=== PATIENT | female | born 1975 | race Hispanic/Latino ===

== ENCOUNTER 2017-11-06 08:28 | Outpatient (CLI) | payer MEDICAID | END 2017-11-06 08:29 | disposition home or self-care (01) | LOC: BICMAMMO 08:28 | PROVIDERS: ATTEND Nurse Practitioner Family | DX: R92.2 Inconclusive mammogram (principal) | CPT/HCPCS: G0279 ==

== ENCOUNTER 2018-06-12 09:42 | Outpatient (CLI) | payer MEDICAID | END 2018-06-12 09:43 | disposition home or self-care (01) | LOC: BICMAMMO 09:42 → EDSTATUS 10:00 | PROVIDERS: ATTEND Nurse Practitioner Family | DX: R92.8 Other abnormal and inconclusive findings on diagnostic imaging of breast (principal); N63.22 Unspecified lump in the left breast, upper inner quadrant | CPT/HCPCS: G0279 ==

== ENCOUNTER 2019-01-17 14:45 | Outpatient (CLI) | payer MEDICAID ==
--- NOTE | 2019-01-17 15:22 | MMO ---
Bilateral MAMMO Bilat Diag [facility]. CLINICAL HISTORY: Patient is 43 years old and is seen for diagnostic exam. The patient has no family history of breast cancer. The patient has no personal history of cancer. VIEWS: The views performed were: bilateral craniocaudal with tomosynthesis; bilateral mediolateral oblique with tomosynthesis; and bilateral mediolateral. FILMS COMPARED: The present examination has been compared to prior imaging studies performed at [facility] on 10/25/2017, 11/06/2017 and 06/12/2018. MAMMOGRAM FINDINGS: The breasts are heterogeneously dense, which could obscure a lesion on mammography. Finding 1: There are stable benign appearing calcifications seen in both breasts. Finding 2: There is a stable nodule with associated dystrophic calcifications seen in the posterior of the left breast. There are no suspicious masses, suspicious calcifications, or new areas of architectural distortion. IMPRESSION: THERE IS NO MAMMOGRAPHIC EVIDENCE OF MALIGNANCY. A ROUTINE FOLLOW-UP MAMMOGRAM IN 1 YEAR IS RECOMMENDED. THE RESULTS OF THIS EXAM WERE SENT TO THE PATIENT. ACR BI-RADS Category 2 - Benign finding MAMMOGRAPHY NOTE: 1. A negative mammogram report should not delay a biopsy if a dominant of clinically suspicious mass is present. 2. Approximately 10% to 15% of breast cancers are not detected by mammography. 3. Adenosis and dense breasts may obscure an underlying neoplasm.
== END 2019-01-17 14:46 | disposition home or self-care (01) ==
LOC: BICMAMMO 14:45
PROVIDERS: ATTEND Family Medicine
DX: R92.8 Other abnormal and inconclusive findings on diagnostic imaging of breast (principal)
CPT/HCPCS: 77066; G0279

== ENCOUNTER 2019-11-09 10:37 | Emergency (ER) | payer MEDICAID ==
[2019-11-09 11:07] LABS: Bacteria/HPF 2+ HPF (None Seen); Bilirubin Negative (Negative); Blood, Urine 1+ (Negative); Clarity Turbid (Clear); Glucose, Urine (Dipstick) Normal (Negative); Leukocyte 250 Leu/uL (Negative); Nitrite Negative (Negative); Protein, Urine (Dipstick) 10 mg/dL (Neg-Trace); Urobilinogen Normal mg/dL (Less than 2)
[2019-11-09 11:08] LABS: Pregnancy Test - Urine (BHCG) Negative (Negative); Pregu Control Background? CLEAR/WHITE (CLR/WHITE); Pregu Control Bar Appear? YES (CONTROL BAR); Specific Gravity 1.024 (1.002-1.036)
[2019-11-09] MEDS ORDERED: Ondansetron PF 4 MG/2 ML Vial ONE (11:29)
[2019-11-09] MEDS ORDERED: Ketorolac Tromethamine 30 MG/ML VIAL ONE (11:31)
--- NOTE | 2019-11-09 12:04 | CT ---
CT Stone Protocol: 11/09/2019 11:16 AM HISTORY: Right back pain radiating to the abdomen COMPARISON: 11/11/2015 TECHNIQUE: Multiple contiguous axial images were obtained and a CT of the abdomen and pelvis without IV contrast . Coronal and sagittal reformats were performed. FINDINGS: This examination is limited for the evaluation of solid organs and vascular structures due to the lac k of intravenous contrast. Lower Chest: within normal limits. Abdomen: Liver: within normal limits. Bile Ducts: Normal caliber. Gallbladder: Removed Pancreas: within normal limits. Spleen: within normal limits. Adrenals: within normal limits. Kidneys: Nonobstructing calcifications in the left kidney measuring up to 3 mm in size. Pelvis: Reproductive Organs: No pelvic masses. Multiple phleboliths are seen in the pelvis. These are externa l to the distal ureters. Ureters: within normal limits. Bladder: within normal limits. Bowel: Normal caliber. Postsurgical changes in the stomach. Mesenteric Lymph Nodes: No enlarged mesenteric lymph nodes. Peritoneum: No ascites or free air, no fluid collection. Vessels: Normal caliber aorta Retroperitoneum: within normal limits. Abdominal Wall: within normal limits. Bones: Unremarkable. IMPRESSION: Nonobstructing left renal calcifications
== END 2019-11-09 13:32 | disposition home or self-care (01) ==
LOC: ERS 10:37
DX: N39.0 Urinary tract infection, site not specified (principal); Z87.442 Personal history of urinary calculi
CPT/HCPCS: 74176; 81003; 81015; 81025; 87086; 96361; 96374; 96375; J1885; J2405

== ENCOUNTER 2020-05-21 15:39 | Outpatient (CLI) | payer MEDICAID ==
--- NOTE | 2020-05-21 16:25 | MMO ---
Bilateral MAMMO Bilat Screen [facility]. CLINICAL HISTORY: Patient is 44 years old and is seen for screening. The patient has the following family history of breast cancer: sister, at age 47. The patient has no personal history of cancer. VIEWS: The views performed were: bilateral craniocaudal with tomosynthesis and bilateral mediolateral oblique with tomosynthesis. FILMS COMPARED: The present examination has been compared to prior imaging studies performed at [facility] on 10/25/2017, 11/06/2017, 06/12/2018 and 01/17/2019. This study has been interpreted with the assistance of computer-aided detection. MAMMOGRAM FINDINGS: The breasts are heterogeneously dense, which could obscure a lesion on mammography. Finding 1: There are stable benign appearing calcifications seen in both breasts. Finding 2: There are stable benign appearing densities seen in both breasts. There are no suspicious masses, suspicious calcifications, or new areas of architectural distortion. IMPRESSION: THERE IS NO MAMMOGRAPHIC EVIDENCE OF MALIGNANCY. A ROUTINE FOLLOW-UP MAMMOGRAM IN 1 YEAR IS RECOMMENDED. THE RESULTS OF THIS EXAM WERE SENT TO THE PATIENT. ACR BI-RADS Category 2 - Benign finding MAMMOGRAPHY NOTE: 1. A negative mammogram report should not delay a biopsy if a dominant of clinically suspicious mass is present. 2. Approximately 10% to 15% of breast cancers are not detected by mammography. 3. Adenosis and dense breasts may obscure an underlying neoplasm. Reported by: DOTTIE OCASIO MD Electonically Signed: [id number]
== END 2020-05-21 15:40 | disposition home or self-care (01) ==
LOC: BICMAMMO 15:39
PROVIDERS: ATTEND Family Medicine
DX: Z12.31 Encounter for screening mammogram for malignant neoplasm of breast (principal); Z80.3 Family history of malignant neoplasm of breast
CPT/HCPCS: 77063; 77067

== ENCOUNTER 2020-09-30 16:29 | Emergency (ER) | payer MEDICAID, SELFPAY ==
[2020-09-30] MEDS ORDERED: Ketorolac Tromethamine 30 MG/ML VIAL ONE (17:04)
[2020-09-30 17:14] LABS: Bacteria/HPF None Seen HPF (None Seen); Bilirubin Negative (Negative); Blood, Urine Trace (Negative); Clarity Turbid (Clear); Glucose, Urine (Dipstick) Normal (Negative); Ketone, Urine Negative (Negative); Leukocyte 500 Leu/uL (Negative); Nitrite Negative (Negative); Protein, Urine (Dipstick) 30 mg/dL (Neg-Trace); Specific Gravity, Urine 1.037 (1.002-1.036); Squamous Epithelial 0-3 HPF (0-3); Urobilinogen 3 mg/dL (Less than 2); WBC/HPF Greater than 50 HPF (0-3); pH, Urine 6.5 (5.0-9.0)
[2020-09-30 17:16] LABS: Pregnancy Test - Urine (BHCG) Negative (Negative)
[2020-09-30 17:17] LABS: Pregu Control Background? CLEAR/WHITE (CLR/WHITE); Pregu Control Bar Appear? YES (CONTROL BAR); Specific Gravity 1.037 (1.002-1.036)
[2020-09-30 17:45] LABS: #Eosinphils 0.1 thou/uL (0.0-0.7); #Lymphocytes 1.3 thou/uL (1.20-3.40); #Monocytes 0.3 thou/uL (0.11-0.59); %Basophils 0.5 % (0.0-1.0); %Eosinophils 1.8 % (0.0-10.0); %Lymphocytes 22.2 % (21.0-51.0); %Monocytes 5.1 % (0.0-10.0); %Neutrophils 70.4 % (42.0-75.0); Hemoglobin 12.7 g/dL (12.0-16.0); Mean Corpuscular HGB CONC 33.1 g/dL (32.0-36.0); Mean Corpuscular Hemoglobin 29.1 pg (27.0-31.0); Mean Corpuscular Volume 87.9 fL (78.0-98.0); Mean Platelet Volume 8.4 fL (7.4-10.4); Platelet Count 195 thou/uL (130-400); RBC Distribution Width 12.8 % (11.5-14.5); Red Blood Cell (RBC) Count 4.38 mill/uL (4.20-5.40); White Blood Cell (WBC) Count 5.6 thou/uL (4.8-10.8)
[2020-09-30 18:13] LABS: ALT (SGPT) 25 U/L (8-55); AST (SGOT) 25 U/L (5-34); Alkaline Phosphatase 91 U/L (40-110); Anion Gap 11 mmol/L (10-20); BUN (Urea Nitrogen) 9 mg/dL (7.0-18.7); Bilirubin, Total 0.8 mg/dL (0.2-1.2); Calc. Creatinine Clearance 0 mL/min (70-130); Calcium 8.7 mg/dL (7.8-10.44); Carbon Dioxide 27 mmol/L (22-29); Chloride 102 mmol/L (98-107); Globulin 3.3 g/dL (2.4-3.5); Glucose 90 mg/dL (70-105); Potassium 4.1 mmol/L (3.5-5.1); Protein, Total 7.3 g/dL (6.0-8.3); Sodium 136 mmol/L (136-145)
--- NOTE | 2020-09-30 18:23 | CT ---
Exam: Abdomen CT without contrast Pelvic CT without contrast HISTORY: Left flank pain COMPARISON: 11/09/2019 FINDINGS: Abdomen CT: Lung bases:Clear Heart size: Normal heart size Aorta: Unremarkable Solid organs: Limited evaluation by the lack of IV contrast. Grossly no solid organ abnormality Lymph nodes: No gastrohepatic, retrocrural or periportal lymphadenopathy Gallbladder: Surgically absent Mesentery: No mass, lymphadenopathy, free air or free fluid Kidneys: Bilaterally no obstructive uropathy punctate nonobstructing 2 mm calculus in the mid left re nal pelvis. Alimentary canal: Limited evaluation by the lack of oral contrast. No evidence of a bowel obstruction . Decompressed colon. Normal caliber air-filled appendix. Evidence of previous bariatric surgery. CT PELVIS: No mass, adenopathy, free air or free fluid. Grossly unremarkable reproductive organs Urinary bladder: Unremarkable. Osseous structures: No lytic or blastic lesions IMPRESSION: 1. No evidence of obstructive uropathy 2. Nonobstructing 2 mm calculus in the left renal pelvis.
== END 2020-09-30 19:45 | disposition home or self-care (01) ==
LOC: ERS 16:29
DX: N10 Acute pyelonephritis (principal)
CPT/HCPCS: 36415; 74176; 80053; 81003; 81015; 81025; 85025; 87086; 96372; J1885

== ENCOUNTER 2021-09-20 15:15 | Outpatient (CLI) | payer MEDICAID | END 2021-09-20 15:16 | disposition home or self-care (01) | LOC: BICMAMMO 15:15 | PROVIDERS: ATTEND Family Medicine | DX: Z12.31 Encounter for screening mammogram for malignant neoplasm of breast (principal); Z80.3 Family history of malignant neoplasm of breast | CPT/HCPCS: 77067 ==

== ENCOUNTER 2022-07-14 06:36 | Emergency (ER) | payer MEDICAID, SELFPAY | END 2022-07-14 08:04 | disposition home or self-care (01) | LOC: ERS 06:36 | DX: J02.9 Acute pharyngitis, unspecified (principal); M79.9 Soft tissue disorder, unspecified | CPT/HCPCS: 87081; 87430 ==

== ENCOUNTER 2022-11-02 12:54 | Outpatient (CLI) | payer MEDICAID | END 2022-11-02 12:55 | disposition home or self-care (01) | LOC: BICMAMMO 12:54 | PROVIDERS: ATTEND Family Medicine | DX: Z12.31 Encounter for screening mammogram for malignant neoplasm of breast (principal); Z80.3 Family history of malignant neoplasm of breast | CPT/HCPCS: 77067 ==